=== PATIENT | male | born 1995 | race African-American/Black ===

== ENCOUNTER 2020-05-25 09:32 | Emergency (ER) | payer OTHER ==
[~2020-05-25] VITALS: Ht 188 cm; Wt 90.7 kg
[2020-05-25 10:04] LABS: URINE BLOOD NEGATIVE (Negative); URINE CLARITY CLEAR; URINE COLOR YELLOW; URINE GLUCOSE-RANDOM* NEGATIVE (Negative); URINE KETONES 3+ (Negative); URINE LEUKOCYTES-REFLEX NEGATIVE (Negative); URINE NITRITE-REFLEX NEGATIVE (Negative); URINE PROTEIN (DIPSTICK) 1+ (Negative); URINE SPECIFIC GRAVITY >= 1.030 (1.005-1.035)
[2020-05-25 10:19] LABS: ICTOTEST (BILI CONFIRMATORY) Negative (Negative); URINE BILIRUBIN NEGATIVE (Negative); URINE REDUCING SUBSTANCE NEGATIVE
[2020-05-25 10:41] LABS: SQUAMOUS 0-3 Few /LPF (0-3)
[2020-05-25 10:42] LABS: BACTERIA-REFLEX 1-9 Few /HPF (None Seen); CASTS None Seen /LPF (None Seen); CRYSTALS None Seen /LPF (None Seen); URINE RBC 0-2 Rare /HPF (0-2)
[2020-05-25 10:43] LABS: URINE WBC-REFLEX 0-5 Rare /HPF (0-5)
[2020-05-25 12:29] VITALS: BP 122/74
== END 2020-05-25 12:29 | disposition home or self-care (01) ==
LOC: ER 09:32
PROVIDERS: Emergency Medicine
DX: M54.5 Low back pain (principal)

== ENCOUNTER 2021-07-21 09:22 | Emergency (ER) | payer OTHER ==
[~2021-07-21] VITALS: Ht 188 cm; Wt 90.7 kg
[2021-07-21 09:59] LABS: URINE BILIRUBIN NEGATIVE (Negative); URINE BLOOD NEGATIVE (Negative); URINE CLARITY CLEAR; URINE COLOR YELLOW; URINE GLUCOSE-RANDOM* NEGATIVE (Negative); URINE KETONES NEGATIVE (Negative); URINE LEUKOCYTES-REFLEX NEGATIVE (Negative); URINE NITRITE-REFLEX NEGATIVE (Negative); URINE PROTEIN (DIPSTICK) NEGATIVE (Negative); URINE UROBILINOGEN 0.2 E.U./dl (0.2-1.0)
[2021-07-21 11:00] VITALS: BP 127/86
== END 2021-07-21 11:00 | disposition home or self-care (01) ==
LOC: ER 09:22
PROVIDERS: Student in an Organized Health Care Education/Training Program
DX: R30.0 Dysuria (principal); Z98.890 Other specified postprocedural states